=== PATIENT | male | born 1965 | race Two or more races ===

== ENCOUNTER → 2017-04-03 | Outpatient (CLI) | payer OTHER ==
--- NOTE | 2017-04-03 13:28 | RAD ---
EXAM: Right hand 3 views. HISTORY: Right hand pain. COMPARISON: None. FINDINGS: There are fractures of the 4th and 5th metacarpal necks. There is intra-articular extension at the 5th metacarpal. There is volar and radial angulation of both distal fracture fragments. These appear subacute. There may be a chronic healed fracture deformity of the 5th middle phalanx. A radiopaque foreign body projects along the dorsal, radial aspect of the 3rd middle phalanx and measures 2 mm. 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 Metacarpophalangeal osteoarthritis is mild along the 1st through 3rd rays. 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 IMPRESSION: 1. Subacute angulated fractures of the 4th and 5th metacarpals with intra-articular extension at the 5th metacarpal head.
== END | disposition home or self-care (01) ==
LOC: DXRADRC 13:04 → EEVIPCON 13:04
PROVIDERS: ATTEND Orthopaedic Surgery Sports Medicine
DX: M79.641 Pain in right hand (principal)
CPT/HCPCS: 73130

== ENCOUNTER → 2020-06-02 | Outpatient (CLI) | payer OTHER ==
[2020-06-02 12:35] LABS: BASO % 0 % (0-3); EOS % 1 % (0-3); HEMATOCRIT 41.5 % (39.0-53.0); HEMOGLOBIN 13.8 g/dL (13.0-17.5); LYMPH # 1.5 x10^3/uL (1.0-4.8); LYMPH % 33 % (24-48); MEAN CORPUSCULAR HEMOGLOBIN 29 pg (25-35); MEAN CORPUSCULAR HGB CONC 33 g/dL (31-37); MEAN CORPUSCULAR VOLUME 88 fL (79-100); MONO # 0.4 x10^3/uL (0.0-1.1); MONO % 8 % (0-9); NEUT # 2.6 x10^3uL (1.8-7.7); NEUT % 58 % (31-73); PLATELET COUNT 224 x10^3/uL (140-400); RED BLOOD COUNT 4.72 x10^6/uL (4.30-5.70); RED CELL DISTRIBUTION WIDTH 13.3 % (11.5-14.5); WHITE BLOOD COUNT 4.5 x10^3/uL (4.0-11.0)
[2020-06-02 12:43] LABS: ALBUMIN 3.8 g/dL (3.4-5.0); CALCIUM 9.2 mg/dL (8.5-10.1); CREATININE 0.9 mg/dL (0.7-1.3); GFR 87.9; POTASSIUM 4.5 mmol/L (3.5-5.1); TOTAL BILIRUBIN 0.3 mg/dL (0.2-1.0); TOTAL PROTEIN 7.8 g/dL (6.4-8.2)
== END | disposition home or self-care (01) ==
LOC: SPEC 12:16 → EEVIPCON 12:16
DX: I82.402 Acute embolism and thrombosis of unspecified deep veins of left lower extremity (principal)
CPT/HCPCS: 36415; 80053; 85025; 85379; 85610; 85730